=== PATIENT | female | born 1985 | race Caucasian/White ===

== ENCOUNTER 2017-06-13 12:43 | Outpatient (CLI) | payer MEDICAID, OTHER ==
[~2017-06-13] VITALS: Ht 160 cm; Wt 80.0 kg
[~2017-06-13 12:43] MED LIST: PREN1TAB49
[2017-06-13 13:24] VITALS: Ht 160 cm; Wt 80.0 kg
[2017-06-13 13:25] VITALS: BP 105/77; PULSE 81; RESP 16
[2017-06-13] MEDS ORDERED: LACTATED RINGER'S 1,000 ML IV SCH (13:35)
[2017-06-13] MEDS ORDERED: ACETAMINOPHEN 500 MG TAB PO STA (13:35)
--- NOTE | 2017-06-13 14:12 | PN ---
Triage Information Date/Time Reason for visit: episode of dizziness and SOB after showering. reports normal FM, denies LOF, VB, UCs, dysuria. Reports constipation with LAP 2/2 straining x3d. Also c/o DIAZ Weeks of Gestation 22+5 /Para 3/0, s/p SAB x2 Diabetes: none Hypertention: none Objective Vital Signs Date Time Temp Pulse Resp B/P Pulse Ox O2 Delivery O2 Flow Rate FiO2 06/13/17 13:25 98.2 81 16 105/77 99-100% on RA Heart Rate: 140's Contractions: None Exam Gen: well appearing, NAD CV: RRR, nl s1s2 Resp: CTAB Results/Medications Medications Current Medications Lactated Ringer's (Lr) 1,000 ml @ 125 mls/hr Q8H IV Last administered on t 13:54; Admin Dose 125 MLS/HR; Start 06/13/17 at 13:35 Disposition: Discharge Assessment/Plan Pt w/resolved dizziness and SOB- likely vasovagal episode -IVF bolus -Encourage PO intake and refraining from standing in hot sun FWB reassuring Headache -Resolved s/p Tylenol 1000mg PO LAP/Constipation -[place] given in triage per pt request -Encouraged increased fiber intake and to refrain from straining -Miralax prn -No e/o UTI Pt appropriate for d/c home. Pt encouraged to establish care w/OB this week now that [employer] has been approved PTL/PPROM precautions reviewed SUSANNE RENAE MD Jun 13, 2017 14:11
[2017-06-13 14:15] LABS: ADD UMIC YES; UR ASCORBIC ACID NEGATIVE (NEGATIVE); UR BILIRUBIN (Dip) NEGATIVE (NEGATIVE); UR BLOOD (Dip) NEGATIVE (NEGATIVE); UR CLARITY CLEAR (CLEAR); UR COLOR YELLOW (YELLOW); UR GLUCOSE (Dip) NEGATIVE (NEGATIVE); UR KETONES (Dip) NEGATIVE (NEGATIVE); UR LEUKOCYTE ESTERASE (Dip) 2+ Leu/ul (NEGATIVE); UR NITRITE (Dip) NEGATIVE (NEGATIVE); UR RBC 1 /HPF (0-5); UR SPECIFIC GRAVITY (Dip) 1.009 (1.003-1.030); UR SQUAMOUS EPITHELIAL CELL FEW /HPF (FEW); UR TOTAL PROTEIN (Dip) NEGATIVE (NEGATIVE); UR UROBILINOGEN (Dip) NEGATIVE (NEGATIVE)
[2017-06-13] MEDS ORDERED: SENNA TAB PO ONE (14:30)
--- NOTE | 2017-06-13 15:42 | TRIAGE ---
OB Triage Datetime Report Generated by CPN: 06/13/2017 15:42 Datetime: 06/13/2017 13:29 Heart Rate Comments: fhr 145 Datetime: 06/13/2017 13:22 Assessment Type: Triage Maternal Assessment Level of Consciousness: Fully Conscious DTR's/Clonus: DTRs 2+; No Clonus Headache: Denies Blurred Vision: Yes Respiratory Effort: Unlabored; Regular Rhythm; Equal Expansion Breath Sounds, Left: Clear and Equal Breath Sounds, Right: Clear and Equal Nausea/Vomiting: Denies RUQ Epigastric Pain: Denies Lower Extremities Edema: None Degree: None Upper Extremities Edema: None Degree: None Facial Edema: None Fall Risk Assessment History of Falling: (0) No Secondary Diagnosis: (0) No Ambulatory Aid: (0) Bedrest/Nurse Assist IV Therapy: (0) No Gait: (0) Normal/Bedrest/Immobile Mental Status: (0) Oriented to Own Ability Fall Score: 0 Fall Risk Score Definition: No Risk: No action required Datetime: 06/13/2017 13:14 Time of Arrival: 06/13/2017 13:00 EGA: 22.5 Arrived By: Ambulatory Arrived From: Home Chief Complaint: pt. came to hospital c/o dizziness, sob after shower this am, also c/o lower abdo skyla cont. pain since yesterday, pain level 5/10, constipation for 3days, now start to have headcha e, pain level 6/10 Movement: Present Rupture of Membranes: Denies Vaginal Bleeding: None Vaginal Discharge: Denies Recent Sexual Intercouse: Denies Abdominal Trauma: Not Applicable Patient Complaints: Headache; Shortness of Breath; Dizziness Time Provider Notified: 06/13/2017 13:30 Provider Notified: Initial Plan: ua, iv hydration
== END 2017-06-13 15:50 | disposition home or self-care (01) ==
LOC: OBT 12:43 → L-D 12:56 → OBT 15:50
PROVIDERS: ATTEND Obstetrics & Gynecology
DX: O26.892 Other specified pregnancy related conditions, second trimester (principal); Z3A.22 22 weeks gestation of pregnancy; R42 Dizziness and giddiness; R06.02 Shortness of breath; R51 Headache
CPT/HCPCS: 36415; 81001; 96360; 96361; J7120; Z7500; Z7610; G0463

== ENCOUNTER 2017-09-21 08:17 | Outpatient (CLI) | payer OTHER ==
[~2017-09-21] VITALS: Ht 160 cm; Wt 83.9 kg
[2017-09-21 08:48] VITALS: Ht 160 cm; Wt 83.9 kg
[2017-09-21 08:49] VITALS: BP 114/84; PULSE 85; RESP 20
--- NOTE | 2017-09-21 10:15 | RADRPT ---
PROCEDURE: US OB biophysical profile. CLINICAL INDICATION: Biophysical profile TECHNIQUE: Multiple sonographic images of the pelvis were obtained. The images were reviewed on a PACS workstation. COMPARISON: None FINDINGS: There is a single live intrauterine , in cephalic presentation. A normal heart rate i s identified measuring 137 beats per minute. The amniotic fluid index is within normal limits measur ing 11 cm. The placenta is located anteriorly, grade 1 - 2. Biophysical profile: movement 2/2 tone 2/2. breathing 2/2 SHWETHA 2/2 Total 05/18 IMPRESSION: 1. Biophysical profile score of 8/8. 2. Single live intrauterine in cephalic presentation with normal heart rate of 137 b pm. 3. Normal amniotic fluid index of 11 cm. RPTAT: AAPP Physician Kostas Date Time Electronically viewed and signed by Physician Kostas on 09/21/2017 10:15 JL/
--- NOTE | 2017-09-21 10:47 | PN ---
Triage Information Date/Time Reason for visit: Uterine contractions (Also she has nosebleed and have been evaluated in ER) Weeks of Gestation 37+ /Para .. Diabetes: none Hypertention: none Objective Vital Signs Date Time Temp Pulse Resp B/P Pulse Ox O2 Delivery O2 Flow Rate FiO2 09/21/17 08:49 98.7 85 20 114/84 Room Air Heart Rate: 140's Contractions: >10 Minutes Apart Disposition: Discharge Assessment/Plan No Cervical change Patient will be followed up with provider Precautions discussed MARCELA TORRES M.D. Sep 21, 2017 10:47
--- NOTE | 2017-09-21 10:51 | TRIAGE ---
OB Triage Datetime Report Generated by CPN: 09/21/2017 10:51 Datetime: 09/21/2017 10:27 Stage of : OB Triage Monitor Mode: External Resting Tone [place]: Relaxed Heart Rate FHR Baseline Rate: 135 FHR Baseline Changes: No Baseline Change Variability: Moderate 6-25 bpm Accelerations: 15X15 Decelerations: None Category: Category I Pain Assessment Pain Scale: 0 Pain Presence: None/Denies Pain Goal: 3 Datetime: 09/21/2017 10:17 Vaginal Exam Dilatation (cms): 0.0 Effacement (%): 40 Station: -3 Exam By: AJ Vaginal Bleeding: None Cervix, Consistency: Firm Cervix, Position: Midposition Datetime: 09/21/2017 09:30 Stage of : OB Triage Labor Evaluation Frequency: NONE Monitor Mode: External Resting Tone [place]: Relaxed Heart Rate FHR Baseline Rate: 135 FHR Baseline Changes: No Baseline Change Variability: Moderate 6-25 bpm Accelerations: 15X15 Decelerations: None Category: Category I Pain Assessment Pain Scale: 0 Pain Presence: None/Denies Pain Goal: 3 Datetime: 09/21/2017 09:22 Stage of : OB Triage Datetime: 09/21/2017 08:59 Stage of : OB Triage Assessment Type: Triage Maternal Assessment Level of Consciousness: Fully Conscious DTR's/Clonus: DTRs 2+; No Clonus Headache: Denies Blurred Vision: No Respiratory Effort: Unlabored; Regular Rhythm; Equal Expansion Breath Sounds, Left: Clear and Equal Breath Sounds, Right: Clear and Equal Nausea/Vomiting: Denies RUQ Epigastric Pain: Denies Lower Extremities Edema: None Degree: None Upper Extremities Edema: None Degree: None Facial Edema: None Fall Risk Assessment History of Falling: (0) No Secondary Diagnosis: (0) No Ambulatory Aid: (0) Bedrest/Nurse Assist IV Therapy: (0) No Gait: (0) Normal/Bedrest/Immobile Mental Status: (0) Oriented to Own Ability Fall Score: 0 Fall Risk Score Definition: No Risk: No action required Datetime: 06/13/2017 15:40 Time of Arrival: 09/21/2017 08:10 EGA: 37.1 Arrived By: Ambulatory Arrived From: Emergency Dept Chief Complaint: PT IN FROM ER TO DO NST .PT HAD NOSE AND RECTAL BLEEDING.WHICH IS CLEARED BY ER. Movement: Present Contractions: Denies/Absent Rupture of Membranes: Denies Vaginal Bleeding: None Vaginal Discharge: Denies Recent Sexual Intercouse: Denies Abdominal Trauma: Not Applicable Patient Complaints: None Time Provider Notified: 09/21/2017 09:00 Initial Plan: NST Datetime: 06/13/2017 13:22 Fall Score: 0 Fall Risk Score Definition: No Risk: No action required Datetime: 06/13/2017 13:14 EGA: 22.6
== END 2017-09-21 10:50 | disposition home or self-care (01) ==
LOC: OBT 08:17 → L-D 08:17 → OBT 10:50
PROVIDERS: ATTEND Obstetrics & Gynecology
DX: O62.9 Abnormality of forces of labor, unspecified (principal); R04.0 Epistaxis; Z3A.37 37 weeks gestation of pregnancy
CPT/HCPCS: 76818; Z7500; G0463